=== PATIENT | female | born 1995 ===

== ENCOUNTER 2023-07-10 08:00 | Outpatient (CLI) | payer OTHER | END 2023-07-10 23:59 | disposition home or self-care (01) | LOC: LAB.WC 08:00 | PROVIDERS: ATTEND Obstetrics & Gynecology | DX: Z36.85 Encounter for antenatal screening for Streptococcus B (principal) | CPT/HCPCS: 87797 ==

== ENCOUNTER 2023-07-11 18:09 | Outpatient (CLI) | payer OTHER ==
[2023-07-11 18:27] VITALS: BP 128/76
--- NOTE | 2023-07-12 01:05 | PROCEDURE REPORT ---
- HPI Diagnosis/Indication for NST: Other (cyst on umbilical cord) Current EDU 08/05/23 Gestation 36 Weeks and 3 Days 3 Para 1 Vital Signs Temperature 97.9 F 07/11/23 18:20 Heart Rate 98 07/11/23 18:20 Respiratory Rate 16 07/11/23 18:20 Blood Pressure 128/76 07/11/23 18:20 Temperature 97.9 F 07/11/23 18:20 Heart Rate 98 07/11/23 18:20 Respiratory Rate 16 07/11/23 18:20 Blood Pressure 128/76 07/11/23 18:20 O2 Saturation If not protocol: Oxygen Flow, liters/minute - NST Procedure NST Procedure Start Date 07/11/23 Start Time 18:17 Stop Time 18:38 Vibroacoustic Stimulation Used No Patient States Movement Yes 145 mod delmy + A cells no D cells, reactive - Results and Plan Findings/Impression: reactive NST Plan: OK to D/C home and continue scheduled ANC.
== END 2023-07-11 18:43 | disposition home or self-care (01) ==
LOC: WFO 18:09 → FBP 18:11 → WFO 18:43
PROVIDERS: ATTEND Obstetrics & Gynecology
DX: O24.419 Gestational diabetes mellitus in pregnancy, unspecified control (principal); O13.3 Gestational [pregnancy-induced] hypertension without significant proteinuria, third trimester; O36.8930 Maternal care for other specified fetal problems, third trimester, not applicable or unspecified; O09.93 Supervision of high risk pregnancy, unspecified, third trimester; Z3A.35 35 weeks gestation of pregnancy
CPT/HCPCS: 59025

== ENCOUNTER 2023-07-11 18:46 | Outpatient (CLI) | payer OTHER ==
--- NOTE | 2023-07-12 10:09 | Ultrasound Report ---
PROCEDURE: OB F/U or Repeat INDICATIONS: DISORDER OUTSIDE/PRIOR DATING DATA: Last menstrual period (LMP): 10/29/2022. LMP-based estimated date of delivery (JESSICA): 08/05/2023. First dating scan (date and location): Not available. Estimated date of delivery (JESSICA) from first dating scan: Not available. The below data below was generated using the clinical JESSICA of 08/05/2023 TECHNIQUE: Real-time scanning was performed of the fetus, with image documentation and biometric measurements. Endovaginal scanning: Not performed. COMPARISON: None. FINDINGS: General: A single living intrauterine gestation is present. Presentation: Vertex Placenta: Placental position is posterior Amniotic fluid index: 16.8 cm, within normal limits for gestational age. heart rate: 157 beats per minute. Biophysical profile: Tone: 2 Movement: 2 Respiration: 2 Largest pocket: 2, 4.8 cm. Umbilical artery SD ratios: 2.5-2.7 Other: Not applicable. IMPRESSION: 1.Single live intrauterine . 2.Biophysical profile of 8 out of 8. Umbilical artery S/D ratios ranging from 2.5-2.7. Reviewed by: Oz Ventura MD on 07/12/2023 10:08 AM PST Approved by: Oz Ventura MD on 07/12/2023 10:08 AM PST Station ID: [id number]
--- NOTE | 2023-07-12 10:10 | Ultrasound Report ---
PROCEDURE: OB Biophysical Profile INDICATIONS: DISORDER OUTSIDE/PRIOR DATING DATA: Last menstrual period (LMP): 10/29/2022. LMP-based estimated date of delivery (JESSICA): 08/05/2023. First dating scan (date and location): Not available. Estimated date of delivery (JESSICA) from first dating scan: Not available. The below data below was generated using the clinical JESSICA of 08/05/2023 TECHNIQUE: Real-time scanning was performed of the fetus, with image documentation and biometric measurements. Endovaginal scanning: Not performed. COMPARISON: None. FINDINGS: General: A single living intrauterine gestation is present. Presentation: Vertex Placenta: Placental position is posterior Amniotic fluid index: 16.8 cm, within normal limits for gestational age. heart rate: 157 beats per minute. Biophysical profile: Tone: 2 Movement: 2 Respiration: 2 Largest pocket: 2, 4.8 cm. Umbilical artery SD ratios: 2.5-2.7 Other: Not applicable. IMPRESSION: 1.Single live intrauterine . 2.Biophysical profile of 8 out of 8. Umbilical artery S/D ratios ranging from 2.5-2.7. Reviewed by: Oz Ventura MD on 07/12/2023 10:09 AM PST Approved by: Oz Ventura MD on 07/12/2023 10:09 AM PST Station ID: [id number]
== END 2023-07-11 18:47 | disposition home or self-care (01) ==
LOC: DI 18:46
PROVIDERS: ATTEND Obstetrics & Gynecology
DX: O36.8930 Maternal care for other specified fetal problems, third trimester, not applicable or unspecified (principal); O09.93 Supervision of high risk pregnancy, unspecified, third trimester

== ENCOUNTER 2023-07-17 08:00 | Outpatient (CLI) | payer OTHER ==
[2023-07-17 16:26] LABS: BILIRUBIN,URINE NEGATIVE (NEGATIVE); GLUCOSE, URINE (UA) NEGATIVE (NEGATIVE); KETONES,URINE (UA) NEGATIVE (NEGATIVE); LEUKOCYTE ESTERASE, URINE NEGATIVE (NEGATIVE); NITRITE,URINE NEGATIVE (NEGATIVE); OCCULT BLOOD,URINE TRACE-INTA (NEGATIVE); PH,URINE 6.5 PH (5.0-7.5); PROTEIN,URINE NEGATIVE (NEGATIVE); UROBILINOGEN,URINE 0.2 (NORMAL) E.U./dL (NORMAL)
[2023-07-17 16:30] LABS: CLARITY,URINE CLEAR (CLEAR)
[2023-07-17 16:46] LABS: RBC,URINE 0-5 /HPF (0-5); WBC,URINE 0-3 /HPF (0-5)
[2023-07-17 16:47] LABS: BACTERIA,URINE None Seen /HPF (None Seen); EPITHELIAL CELLS,UR FEW Transitional /HPF (<= Few); SQUAMOUS EPITHELIAL CELL,UR NONE SEEN (<= Few)
== END 2023-07-17 23:59 | disposition home or self-care (01) ==
LOC: LAB.WC 08:00
PROVIDERS: ATTEND Obstetrics & Gynecology
DX: R10.2 Pelvic and perineal pain (principal)
CPT/HCPCS: 81001; 87086

== ENCOUNTER 2023-07-17 13:09 | Outpatient (CLI) | payer OTHER ==
[2023-07-17 13:29] VITALS: BP 134/86; O2SAT 98
--- NOTE | 2023-07-18 17:21 | PROCEDURE REPORT ---
- HPI Diagnosis/Indication for NST: Other (umbilcal cord abnormality) Current EDU 08/05/23 Gestation 37 Weeks and 2 Days 2 Para 1 Vital Signs Temperature 98.6 F 07/17/23 13:21 Heart Rate 95 07/17/23 13:21 Respiratory Rate 16 07/17/23 13:21 Blood Pressure 134/86 H 07/17/23 13:21 O2 Saturation 98 07/17/23 13:21 Temperature 98.6 F 07/17/23 13:23 Heart Rate 95 07/17/23 13:21 Respiratory Rate 16 07/17/23 13:21 Blood Pressure 134/86 H 07/17/23 13:21 O2 Saturation 98 07/17/23 13:21 If not protocol: Oxygen Flow, liters/minute - NST Procedure NST Procedure Start Date 07/17/23 Start Time 13:15 Stop Time 13:49 Vibroacoustic Stimulation Used No NST reviewed. + acels. no decles. moderate variability. - Results and Plan Findings/Impression: reactive nst Plan: care as scheduled.
== END 2023-07-17 13:50 | disposition home or self-care (01) ==
LOC: WFO 13:09 → FBP 13:10 → WFO 13:50
PROVIDERS: ATTEND Obstetrics & Gynecology
DX: O36.8930 Maternal care for other specified fetal problems, third trimester, not applicable or unspecified (principal); O09.93 Supervision of high risk pregnancy, unspecified, third trimester; Z3A.37 37 weeks gestation of pregnancy; O99.891 Other specified diseases and conditions complicating pregnancy; R10.2 Pelvic and perineal pain
CPT/HCPCS: 59025; 81001; 87086; 99211

== ENCOUNTER 2023-07-18 16:14 | Outpatient (CLI) | payer OTHER ==
--- NOTE | 2023-07-19 17:54 | Ultrasound Report ---
PROCEDURE: OB Biophysical Profile INDICATIONS: DISORDER OUTSIDE/PRIOR DATING DATA: Last menstrual period (LMP): 10/29/2022. LMP-based estimated date of delivery (JESSICA): 08/05/2023. First dating scan (date and location): Not available. Estimated date of delivery (JESSICA) from first dating scan: Not available. The below data below was generated using the clinical JESSICA of 08/05/2023 TECHNIQUE: Real-time scanning was performed of the fetus, with image documentation and biometric gurmeet surements. Biophysical profile was also obtained. COMPARISON: OB ultrasound 06/14/2023 FINDINGS: General: A single living intrauterine gestation is present. Presentation: Vertex Placenta: Placental position is posterior, without previa. Amniotic fluid index: 14.6 cm, within normal limits for gestational age. heart rate: 132 beats per minute. Maternal cervical canal: Not well seen biometrics: Estimated gestational age from initial scan/clinical datin weeks 3 days Biophysical profile: Tone: 2 points. Movement: 2 points. Respiration: 2 points. Largest pocket of fluid: 2 points. Umbilical artery Doppler: 2.3, 2.8, 2.4 IMPRESSION: Single live intrauterine with gestational age 37 weeks 3 days. BPP 8 out of 8. Reviewed by: Skylar Joseph MD on 07/19/2023 5:53 PM PST Approved by: Skylar Joseph MD on 07/19/2023 5:53 PM PST Station ID: [id number]
== END 2023-07-18 16:15 | disposition home or self-care (01) ==
LOC: DI 16:14
PROVIDERS: ATTEND Obstetrics & Gynecology
DX: O09.93 Supervision of high risk pregnancy, unspecified, third trimester (principal); O36.8930 Maternal care for other specified fetal problems, third trimester, not applicable or unspecified; Z3A.37 37 weeks gestation of pregnancy

== ENCOUNTER 2023-07-23 09:01 | Outpatient (CLI) | payer OTHER ==
--- NOTE | 2023-07-23 11:20 | Ultrasound Report ---
PROCEDURE: OB Biophysical Profile INDICATIONS: DISORDER OUTSIDE/PRIOR DATING DATA: Last menstrual period (LMP): 10/29/2022. LMP-based estimated date of delivery (JESSICA): 08/05/2023 (working JESSICA). First dating scan (date and location): Not available. TECHNIQUE: Real-time scanning was performed of the fetus, with image documentation. Biophysical pro file was also obtained. Cord Doppler measurements were obtained. COMPARISON: 07/18/2023 FINDINGS: General: A single living intrauterine gestation is present. Presentation: Vertex Placenta: Placental position is posterior, without previa. Amniotic fluid index: 10.1 cm, within normal limits for gestational age. heart rate: 160 beats per minute. Maternal cervical canal: Not imaged. Estimated gestational age by working JESSICA is now 38 weeks and 1 day. Biophysical profile: Tone: 2 points. Movement: 2 points. Respiration: 2 points. Largest pocket of fluid: 2 points. Umbilical artery Doppler: 2.7-3. Note the cord near the placenta is not well seen. IMPRESSION: Normal BPP (8 out of 8). Normal KATHLEEN. Cord SD ratios within normal limits. Reviewed by: Arvind Torre MD on 07/23/2023 11:19 AM PST Approved by: Arvind Torre MD on 07/23/2023 11:19 AM PST Station ID: [id number]
== END 2023-07-23 09:02 | disposition home or self-care (01) ==
LOC: DI 09:01
PROVIDERS: ATTEND Obstetrics & Gynecology
DX: O35.8XX0 Maternal care for other (suspected) fetal abnormality and damage, not applicable or unspecified (principal); O09.93 Supervision of high risk pregnancy, unspecified, third trimester; Z3A.38 38 weeks gestation of pregnancy

== ENCOUNTER 2023-07-23 09:39 | Outpatient (CLI) | payer OTHER ==
[2023-07-23 09:57] VITALS: BP 123/78
--- NOTE | 2023-07-23 10:20 | PROCEDURE REPORT ---
- HPI Diagnosis/Indication for NST: Other Vital Signs Temperature 98.1 F 07/23/23 09:48 Heart Rate 92 07/23/23 09:48 Respiratory Rate 15 07/23/23 09:48 Blood Pressure 123/78 07/23/23 09:48 Temperature 98.1 F 07/23/23 09:48 Heart Rate 92 07/23/23 09:48 Respiratory Rate 15 07/23/23 09:48 Blood Pressure 123/78 07/23/23 09:48 O2 Saturation If not protocol: Oxygen Flow, liters/minute - Results and Plan Plan: Patient is a 28-year-old -0-0-1 at 38 weeks gestation here for scheduled NST. NST Performed 07/23/2023 NST Read 07/23/2023 FHT: 135 bpm baseline, moderate variability, accelerations present, no decelerations. 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
== END 2023-07-23 11:00 | disposition home or self-care (01) ==
LOC: WFO 09:39 → FBP 09:40 → WFO 11:00
PROVIDERS: ATTEND Obstetrics & Gynecology
DX: O35.8XX0 Maternal care for other (suspected) fetal abnormality and damage, not applicable or unspecified (principal); O09.893 Supervision of other high risk pregnancies, third trimester; Z3A.38 38 weeks gestation of pregnancy
CPT/HCPCS: 59025

== ENCOUNTER 2023-07-29 09:13 | Outpatient (CLI) | payer OTHER ==
--- NOTE | 2023-07-29 13:47 | Ultrasound Report ---
PROCEDURE: OB Biophysical Profile INDICATIONS: DISORDER OUTSIDE/PRIOR DATING DATA: Last menstrual period (LMP): 07/29/2023. LMP-based estimated date of delivery (JESSICA): 08/05/2023. TECHNIQUE: Real-time scanning was performed of the fetus, with image documentation and biometric gurmeet surements. Biophysical profile was also obtained. Endovaginal scanning: Not performed COMPARISON: OB ultrasound July 23, 2023. FINDINGS: General: A single living intrauterine gestation is present. Presentation: Vertex Placenta: Placental position is posterior, without previa. Amniotic fluid index: 11.2 cm, 33rd for gestational age. heart rate: 132 beats per minute. Maternal cervical canal: Not imaged Composite gestational age from present scan: 39 weeks and 0 days Biophysical profile: Tone: 2 points. Movement: 2 points. Respiration: 2 points. Largest pocket of fluid: 2 points (4.6 cm). Additional findings: The chest/diaphragm, stomach/abdomen, kidneys and urinary bladder are grossly no rmal. The bilateral adnexa are grossly normal. IMPRESSION: 1.Single living intrauterine gestation in vertex presentation with gestational age of 39 weeks and 0 days based on initial ultrasound. 2.Biophysical profile is 8 out of 8. 3.KATHLEEN is 11.2 cm (33rd percentile). Reviewed by: Heather Del oRsario MD on 07/29/2023 1:46 PM PST Approved by: Heather Del Rosario MD on 07/29/2023 1:46 PM PST Station ID: [id number]
== END 2023-07-29 09:14 | disposition home or self-care (01) ==
LOC: DI 09:13
PROVIDERS: ATTEND Obstetrics & Gynecology
DX: O09.93 Supervision of high risk pregnancy, unspecified, third trimester (principal); O36.8930 Maternal care for other specified fetal problems, third trimester, not applicable or unspecified; Z3A.39 39 weeks gestation of pregnancy

== ENCOUNTER 2023-07-29 09:41 | Outpatient (CLI) | payer OTHER ==
[2023-07-29 10:06] VITALS: BP 127/79
--- NOTE | 2023-07-29 10:50 | PROCEDURE REPORT ---
- HPI Diagnosis/Indication for NST: Other (umbilical vein varix) Current EDU 08/05/23 Gestation 39 Weeks and 0 Days 3 Para 1 Vital Signs Temperature 98.2 F 07/29/23 09:54 Heart Rate 91 07/29/23 09:54 Respiratory Rate 16 07/29/23 09:54 Blood Pressure 127/79 07/29/23 09:54 Temperature 98.2 F 07/29/23 09:54 Heart Rate 91 07/29/23 09:54 Respiratory Rate 16 07/29/23 09:54 Blood Pressure 127/79 07/29/23 09:54 O2 Saturation If not protocol: Oxygen Flow, liters/minute - NST Procedure NST Procedure Start Date 07/29/23 Start Time 09:50 Stop Time 10:20 Vibroacoustic Stimulation Used No Patient States Movement Yes 39+0 weeks 130, moderate variability, +accels, no decels reactive NST
== END 2023-07-29 10:30 | disposition home or self-care (01) ==
LOC: WFO 09:41 → FBP 09:45 → WFO 10:30
PROVIDERS: ATTEND Obstetrics & Gynecology Obstetrics
DX: O36.8930 Maternal care for other specified fetal problems, third trimester, not applicable or unspecified (principal); O09.93 Supervision of high risk pregnancy, unspecified, third trimester; Z3A.39 39 weeks gestation of pregnancy
CPT/HCPCS: 59025

== ENCOUNTER 2023-07-30 08:15 | Inpatient (IN) | payer OTHER ==
--- NOTE | 2023-07-30 09:09 | HISTORY & PHYSICAL EXAMINATION ---
Admit History - Visit Reason Visit Reason: Other (Elective induction of labor) - : 3 Parity: 1 : 1 Care: positive: [facility] Risk/History: positive: Other (umbical varix insufficient care) Complications This : positive: Other (umbical varix insufficient care) - Mother's Labs Mother's Blood Type: positive: A Mother's RH: positive: Positive GBS: positive: Group B Strep Positive Rubella Status: positive: Immune - HPI Diagnosis/Indication for NST: Other (umbilical vein varix) - NST Procedure NST Procedure Start Time 09:50 Stop Time 10:20 39 weeks 130, moderate variability, +accels, no decels reactive NST Review of Systems - Cardiovascular Cariovascular: denies: Chest pain - Respiratory Respiratory: denies: SOB at rest, SOB with exertion - Gastrointestinal Gastrointestinal: denies: Abdominal pain - All Other Systems All Other Systems: reports: Reviewed and negative Physical - Abdominal Exam Contraction Frequency (min/apart): 3-4 minutes Contraction Intensity: positive: Mild Uterine Resting Tone: positive: Soft - Monitoring Strip Review: positive: Category I - Presentation Presentation: positive: Vertex - Vaginal Exam Membranes: positive: Membranes intact Dilation (in cm): 3 Effacement (%): 50 Station: positive: -2 Cervical Position: positive: Midposition - Speculum Exam Speculum Exam Performed: positive: No Plan for Labor - Plan For Labor I expect patient to be DC'd or transferred within 96 hours.: Yes Plan for Labor: 28-year-old -0-1-1 at 39 weeks presenting for elective induction of labor. 1. induction of labor: Discussed options risk, benefits, and alternatives discussed at length and all questions answered. Informed consent signed. Will start with Pitocin 2. GBS prophylaxis
[2023-07-30] MEDS ORDERED: AMPICILLIN 2 GM in SODIUM CHLORIDE 0.9% MINIBAG 100 ML IV ONE (09:13)
[2023-07-30] MEDS ORDERED: fentaNYL 100 MCG/2 ML VIAL IVP PRN (09:14)
[2023-07-30] MEDS ORDERED: NIFEdipine 10 MG CAPSULE PO PRN (09:14)
[2023-07-30] MEDS ORDERED: hydrALAZINE INJ 20 MG/ML VIAL IVP PRN ×2 (09:14)
[2023-07-30] MEDS ORDERED: TRANEXAMIC ACID IN NACL 1,000 MG/100 ML BAG IV PRN (09:14)
[2023-07-30] MEDS ORDERED: LABETALOL 20 MG/4 ML SYRINGE IVP PRN ×3 (09:14)
[2023-07-30] MEDS ORDERED: miSOPROStoL 200 MCG TABLET PR PRN (09:14)
[2023-07-30] MEDS ORDERED: OXYTOCIN/SODIUM CHLORIDE 500 ML IV PRN (09:14)
[2023-07-30] MEDS ORDERED: OXYTOCIN 10 UNIT/ML VIAL IM PRN (09:14)
[2023-07-30] MEDS ORDERED: SODIUM CHLORIDE FLUSH 0.9% 10 ML SYRINGE IVP PRN (09:14)
[2023-07-30] MEDS ORDERED: CARBOPROST TROMETHAMINE 250 MCG/ML AMP IM PRN (09:14)
[2023-07-30] MEDS ORDERED: miSOPROStoL 200 MCG TABLET BC PRN (09:14)
[2023-07-30] MEDS ORDERED: lidocaine 1% 20 ML MDV ID PRN (09:14)
[2023-07-30] MEDS ORDERED: METHYLERGONOVINE 0.2 MG/ML VIAL IM PRN (09:14)
[2023-07-30] MEDS ORDERED: LACTATED RINGERS 1,000 ML IV PRN (09:14)
[2023-07-30] MEDS ORDERED: OXYTOCIN/SODIUM CHLORIDE 500 ML IV SCH (10:00)
[2023-07-30] MEDS ORDERED: LACTATED RINGERS 1,000 ML IV SCH ×2 (10:00→21:00)
[2023-07-30] MEDS ORDERED: SODIUM CHLORIDE FLUSH 0.9% 10 ML SYRINGE IVP SCH (10:00)
[2023-07-30 10:18] LABS: BASOPHILS % (AUTO) 0.3 %; EOSINOPHILS # (AUTO) 0.2 10^3/uL (0.0-0.7); EOSINOPHILS % (AUTO) 1.9 %; HCT - HEMATOCRIT 35.6 % (37.0-47.0); LYMPHOCYTES # (AUTO) 1.6 10^3/uL (1.5-3.5); LYMPHOCYTES % (AUTO) 15.4 %; MEAN CORPUSCULAR HEMOGLOBIN 31.4 pg (27.0-31.0); MEAN CORPUSCULAR HGB CONC 33.7 g/dL (32.0-36.0); MEAN CORPUSCULAR VOLUME 93.2 fL (81.0-99.0); MEAN PLATELET VOLUME 11.6 fL (7.9-10.8); MONOCYTES # (AUTO) 0.7 10^3/uL (0.0-1.0); MONOCYTES % (AUTO) 6.4 %; NEUTROPHILS # (AUTO) 7.7 10^3/uL (1.5-6.6); NEUTROPHILS % (AUTO) 75.3 %; PLT - PLATELET COUNT 245 10^3/uL (130-450); RED BLOOD COUNT 3.82 10^6/uL (4.20-5.40); RED CELL DISTRIBUTION WIDTH 13.1 % (12.0-15.0); WHITE BLOOD COUNT 10.2 x10^3/uL (4.8-10.8)
--- NOTE | 2023-07-30 14:56 | PROVIDER PROGRESS NOTE ---
Labor Progress Note - Uterine Monitoring Contraction Intensity: positive: Moderate to strong - Monitoring Heart Rate Variability: positive: Moderate (6-25 bmp) Accelerations: positive: Present, 15x15 Decelerations: positive: None (on strip review patient had some late decelerations earlier which have now resolved.) Strip Review: positive: Category I - Vaginal Exam Dilation (in cm): 3 Effacement (%): 80 - Labor Progress Note Labor Progress Note/Additional Text: on 10 of pitocin will continue to monitor. Discussed decelerations from earlier which have now resolved since patient was repositioned.
--- NOTE | 2023-07-30 18:03 | PROVIDER PROGRESS NOTE ---
Labor Progress Note - Uterine Monitoring Uterine Monitoring Mode: positive: External toco Contraction Frequency (min/apart): 3 Contraction Intensity: positive: Moderate to strong Uterine Resting Tone: positive: Soft - Monitoring Monitor Mode: positive: External ultrasound Heart Rate Variability: positive: Moderate (6-25 bmp) Accelerations: positive: Present, 15x15 Decelerations: positive: None - Vaginal Exam Dilation (in cm): 4 Effacement (%): 80 Station: -2 Cervical Position: Midposition - Labor Progress Note Labor Progress Note/Additional Text: AROM with clear fluid
[2023-07-30] MEDS: AMPICILLIN 1 GM in SODIUM CHLORIDE 0.9% MINIBAG 100 ML IV SCH ×2 (18:18→21:11)
--- NOTE | 2023-07-30 20:49 | DELIVERY NOTE ---
Delivery Note - Labor Labor: positive: Augmented by ARM, Induced by oxytocin - Delivery Method Infant Delivery Method: positive: Spontaneous vaginal delivery - Presentation Presentation: positive: Vertex - Nuchal Cord Nuchal Cord: positive: None - Anesthetic Anesthetic: positive: Lidocaine - 1% plain Volume: positive: 5cc - Amniotic Fluid Description Amniotic Fluid Description: positive: Clear - Episiotomy Type Episiotomy Type: positive: None - Laceration Laceration: positive: 2nd degree - Suture Suture Type: positive: Vicryl Suture Size: positive: 3-0 - Delivery Outcome Delivery Outcome: positive: Livebirth - : positive: Placed in direct skin contact with mother, [place] used [place] sex: positive: Male - Cord Cord: positive: 3 vessels - Placenta Placenta: positive: Intact, Spontaneous - Estimated Blood Loss Estimated Blood Loss (in cc): 650 - Post Delivery Events Post Delivery Events: positive: Hemorrhage - Delivery Comments (Free Text/Narrative) Delivery Comments (Free Text/Narrative): Stage I: Patient is a at 39 weeks who presented for elective induction of labor. Pitocin was started. AROM with clear fluid. FHTs remained reassuring throughout the first stage. Stage II: Male was atraumatcally delivered from BO position. There was no nuchal cord. The anterior shoulder was delivered without difficulty followed by the posterior shoulder and body. was vigorous at delivery. Infant was placed on mom. After delayed cord clamping, cord was doubly clamped and cut. Weight and APGARS pending Stage III: Gentle cord traction and crede maneuver were used. Placenta del ivered spontaneously. Placenta was Was noted to be intact with a three-vessel cord. Course: hemorrhage with EBL of 650 mL. Methergine and TXA were given. Lidocaine was used for local anesthetic. Repair of second-degree laceration with 3-0 Vicryl.
[2023-07-30] MEDS: IBUPROFEN 600 MG TABLET PO SCH (21:12)
[2023-07-30] MEDS: ACETAMINOPHEN 325 MG TABLET PO PRN (21:13)
[2023-07-31] MEDS: ACETAMINOPHEN 325 MG TABLET PO PRN ×5 (01:05→21:04)
[2023-07-31] MEDS: IBUPROFEN 600 MG TABLET PO SCH ×4 (03:05→21:04)
[2023-07-31 06:31] LABS: MEAN CORPUSCULAR HGB CONC 34.4 g/dL (32.0-36.0); MEAN PLATELET VOLUME 11.4 fL (7.9-10.8); RED BLOOD COUNT 3.44 10^6/uL (4.20-5.40); RED CELL DISTRIBUTION WIDTH 12.8 % (12.0-15.0); WHITE BLOOD COUNT 17.6 x10^3/uL (4.8-10.8)
--- NOTE | 2023-07-31 12:41 | PROVIDER PROGRESS NOTE ---
Subjective - Prog Note Date Prog Note Date: 07/31/23 Prog Note Time: 12:40 - Subjective Pt reports feeling: Improved Subjective: Patient is day 1 status postnormal spontaneous vaginal delivery complicated by hemorrhage. Patient is doing well this morning. She is ambulating, tolerating diet, spontaneously voiding. Lochia is less than menses. Objective - Vital Signs/Intake & Output Reviewed Vital Signs: Yes Vital Signs: Vital Signs x48h Temp Pulse Resp BP Pulse Ox 07/31/23 12:36 98.4 F 77 18 113/73 99 07/31/23 08:00 98.2 F 91 18 106/67 07/31/23 06:25 84 17 116/71 Intake & Output: Intake & Output 07/28/23 07/29/23 07/30/23 07/31/23 23:59 23:59 23:59 23:59 Intake Total 3274.000 708.333 Output Total 2 601 Balance 3272.000 107.333 - Objective General Appearance: positive: No acute distress Respiratory: positive: Chest non-tender, Breath sounds nml Cardiovascular: positive: Regular rate & rhythm Abdomen: positive: Non-tender (Firm fundus below the umbilicus) Skin: positive: Color nml Extremities: positive: No pedal edema - Lab Results Fish Bones: 07/31/23 06:20 Other Labs: Lab Results x24hrs 07/31/23 07/30/23 Range/Units 06:20 11:15 WBC 17.6 H (4.8-10.8) x10^3/uL RBC 3.44 L (4.20-5.40) 10^6/uL Hgb 11.0 L (12.0-16.0) g/dL Hct 32.0 L (37.0-47.0) % MCV 93.0 (81.0-99.0) fL MCH 32.0 H (27.0-31.0) pg MCHC 34.4 (32.0-36.0) g/dL RDW 12.8 (12.0-15.0) % Plt Count 212 (130-450) 10^3/uL MPV 11.4 H (7.9-10.8) fL Antibody Screen NEGATIVE Assessment/Plan - Problem List (1) Vaginal delivery Impression: hemorrhage: Patient's had otherwise uncomplicated course and has done well this morning.
[2023-08-01 00:04] VITALS: O2SAT 100
[2023-08-01] MEDS: IBUPROFEN 600 MG TABLET PO SCH ×2 (03:14→12:14)
--- NOTE | 2023-08-01 07:39 | DISCHARGE SUMMARY ---
Discharge Summary Admit Date: 07/30/23 Discharge Date: 08/01/23 Primary Care Provider: Annette Code Status: Attempt Resuscitation Condition at Discharge: Good Discharge Disposition: 01 Home, Self Care - HOSPITAL COURSE Hospital Course: Patient is a 28-year-old -0-0-1 who presented at 39 weeks for elective induction of labor. Pitocin was started. AROM with clear fluid. Patient had normal spontaneous vaginal delivery complicated by hemorrhage of 650 mL. Patient did well and was discharged home on day 2. - ALLERGIES Allergies/Adverse Reactions: Allergies Allergy/AdvReac Type Severity Reaction Status Date / Time No Known Drug Allergies Allergy Verified 07/30/23 22:23 - PHYSICAL EXAM AT DISCHARGE General Appearance: positive: No acute distress Respiratory: positive: Breath sounds nml Cardiovascular: positive: Regular rate & rhythm Abdomen: positive: Non-tender (firm fundus below the umbilicus) Skin: positive: Color nml Extremities: positive: No pedal edema - LABS Result Diagrams: 07/31/23 06:20
--- NOTE | 2023-08-01 07:41 | PROVIDER PROGRESS NOTE ---
Subjective - Prog Note Date Prog Note Date: 08/01/23 Prog Note Time: 07:40 - Subjective Subjective: Patient is day 2 status postnormal spontaneous vaginal delivery. She is doing well this morning. Patient is ambulating, tolerating regular diet, spontaneously voiding. She denies chest pain or shortness of breath. Lochia is less than menses. Objective - Vital Signs/Intake & Output Reviewed Vital Signs: Yes Vital Signs: Vital Signs x48h Temp Pulse Resp BP Pulse Ox 07/31/23 23:54 98.6 F 66 17 111/71 100 Intake & Output: Intake & Output 07/29/23 07/30/23 07/31/23 08/01/23 23:59 23:59 23:59 23:59 Intake Total 3274.000 1360.000 Output Total 2 601 Balance 3272.000 759.000 - Objective General Appearance: positive: No acute distress Respiratory: positive: Breath sounds nml Cardiovascular: positive: Regular rate & rhythm Abdomen: positive: Non-tender (Firm fundus below the umbilicus) Skin: positive: Color nml Extremities: positive: Non-tender, No pedal edema - Lab Results Fish Bones: 07/31/23 06:20 Assessment/Plan - Problem List (1) Vaginal delivery Impression: Uncomplicated course. Counseled patient on signs symptoms of depression. Patient has follow-up in office in 1 week. Advised pelvic rest for 6 weeks.
[2023-08-01] MEDS ORDERED: ACETAMINOPHEN 500 MG TABLET PO PRN (08:48)
[2023-08-01 09:38] VITALS: BP 123/67
--- NOTE | 2023-08-01 13:49 | Labor Flowsheet ---
Labor Flowsheet Datetime Report Generated by CPN: 08/01/2023 13:49 Datetime: 08/01/2023 09:20 VITAL SIGNS NBP Sys/Nicki/Mean (mmHg): 123 : 74 : 84 Pulse: 113 Datetime: 08/01/2023 00:04 SpO2 (%): 99 Datetime: 07/30/2023 22:16 Membranes Ruptured Date/Time: 07/30/2023 18:00 Datetime: 07/30/2023 20:30 UTERINE ACTIVITY Monitor Mode: Palpation Frequency (min): 2 Quality: Strong Duration (sec): 50-70 Pattern: Normal: <= 5 Contractions in 10 Minutes Resting Tone (Palpate): Relaxed ASSESSMENT A Monitor Mode: Telemetry FHR Baseline Rate : 130 Variability: Moderate 6-25 bpm Accelerations: 10X10 Decelerations: Early Category: Category I Datetime: 07/30/2023 20:26 Stage of : Datetime: 07/30/2023 20:15 Monitor Interventions for UA: [place] Adjusted Contraction Comments: continously at bedside palpating UCs STAGE 2 Pushing: Coached on Pushing Pushing Position: Pushing with Contractions Pushing Progress: Descent with Pushing Datetime: 07/30/2023 20:12 VAGINAL EXAM Dilatation (cm): 10.0 Vaginal Exam Comments: anterior lip still present Datetime: 07/30/2023 20:05 PATIENT CARE IV/Blood Work: IV Bolus Started; IV Bolus Given ml @ 250 Datetime: 07/30/2023 20:00 Actions for Decelerations: Provider Notified; Other Datetime: 07/30/2023 19:54 Pain Assessment Comments: nitrous oxide LaborFlag: Labor Datetime: 07/30/2023 19:48 COMMUNICATION Communication: Provider at Bedside Datetime: 07/30/2023 19:45 Comments: indeterminate of decels d/t intterupted strip pattern Datetime: 07/30/2023 19:40 Effacement (%): 100 Station: 2 Exam by: Elijah Wilkinson, RN Vaginal Bleeding: Scant Cervix, Consistency: Soft Cervix, Position: Midposition Datetime: 07/30/2023 19:32 I/O Interventions: Up to BR Datetime: 07/30/2023 19:29 Patient Position/Activity: Left Lateral; Left Extreme Datetime: 07/30/2023 19:16 Communication Comments: assuming care Datetime: 07/30/2023 19:05 MEDICATIONS Pitocin (milliunits): Decreased to @ 5 Datetime: 07/30/2023 19:02 Patient Care Comments: Pt c/o pressure Datetime: 07/30/2023 18:30 PAIN Pain Scale: 7 Pain Presence: Intermittent Pain Type: Cramping; Pressure Pain Location: Abdomen; Perineum Pain Relief Measures: Comfort Measures (Annotations: Pt desires to use labor tub. RN at bedside to support labor.) Datetime: 07/30/2023 18:18 Antibiotics: Ampicillin IV 1 Gm Datetime: 07/30/2023 18:11 Respirations: 16 Temperature (C): 36.9 Temperature Route: Oral Datetime: 07/30/2023 18:00 Membranes Rupture Method: Artificial Amniotic Fluid Color: Clear Amniotic Fluid Amount: Moderate Amniotic Fluid Odor: Normal Datetime: 07/30/2023 16:00 Pitocin Checklist: At Least 1 Acceleration of 15 bpm x 15 Seconds in 30 Minutes or Adequate Variabi lity; No More than 1 Late Deceleration Occurred in Past 30 Minutes; No More than 2 Variable Decelerat ions > 60 Seconds in Duration and decreasing >60 bpm in 30 minutes; No More than 5 Uterine Contractio ns in 10 Minutes for any 20 Minute Interval; Uterus Palpates Soft between Contractions Datetime: 07/30/2023 13:00 Pain Coping: Talking Through Contractions Datetime: 07/30/2023 11:30 FHR Baseline Changes: Tachycardia Datetime: 07/30/2023 11:02 Monitor Interventions for FHR: Ultrasound Adjusted
== END 2023-08-01 13:40 | disposition home or self-care (01) | DRG 807 ==
LOC: WFO 08:15 → FBP 08:18 → WFO 09:13 → FBP 09:13
PROVIDERS: ADMIT Obstetrics & Gynecology Obstetrics; ATTEND Obstetrics & Gynecology Obstetrics
PROC: 10907ZC Drainage of Amniotic Fluid, Therapeutic from Products of Conception, Via Natural or Artificial Opening (ICD-10-PCS; principal; 2023-07-30)
PROC: 10E0XZZ Delivery of Products of Conception, External Approach (ICD-10-PCS; 2023-07-30)
PROC: 0KQM0ZZ Repair Perineum Muscle, Open Approach (ICD-10-PCS; 2023-07-30)
PROC: 3E033VJ Introduction of Other Hormone into Peripheral Vein, Percutaneous Approach (ICD-10-PCS; 2023-07-30)
DX: O99.824 Streptococcus B carrier state complicating childbirth (principal); Z37.0 Single live birth; O70.1 Second degree perineal laceration during delivery; O72.1 Other immediate postpartum hemorrhage; O69.89X0 Labor and delivery complicated by other cord complications, not applicable or unspecified; Z3A.39 39 weeks gestation of pregnancy
CPT/HCPCS: 36415; 59409; 85025; 85027; 86850; 86900; 86901; A9270; J2210; J7120

== ENCOUNTER 2023-08-19 10:42 | Outpatient (CLI) | payer OTHER ==
[2023-08-19 10:53] LABS: HGB - HEMOGLOBIN 11.9 g/dL (12.0-16.0); MEAN CORPUSCULAR HEMOGLOBIN 30.9 pg (27.0-31.0); MEAN CORPUSCULAR HGB CONC 32.2 g/dL (32.0-36.0); MEAN CORPUSCULAR VOLUME 96.1 fL (81.0-99.0); MEAN PLATELET VOLUME 10.3 fL (7.9-10.8); RED BLOOD COUNT 3.85 10^6/uL (4.20-5.40); RED CELL DISTRIBUTION WIDTH 12.2 % (12.0-15.0); WHITE BLOOD COUNT 6.5 x10^3/uL (4.8-10.8)
[2023-08-19 11:24] LABS: THYROID STIMULATING HORMONE 1.3 uIU/mL (0.34-5.60)
[2023-08-19 11:30] LABS: FERRITIN 20.8 ng/mL (11.0-306.8)
== END 2023-08-19 10:43 | disposition home or self-care (01) ==
LOC: LAB 10:42
PROVIDERS: ATTEND Nurse Practitioner
DX: R53.83 Other fatigue (principal); M25.50 Pain in unspecified joint
CPT/HCPCS: 36415; 82728; 84439; 84443; 84702; 85027; 85598; 85613; 85732